=== PATIENT | male | born 1960 | race Caucasian/White ===

== ENCOUNTER 2017-04-07 13:57 | Emergency (ER) | payer BC ==
[2017-04-07 14:23] VITALS: BP 136/107; PULSE 57; RESP 16; TEMP 98.1; O2SAT 97
--- NOTE | 2017-04-07 15:11 | EDPHY ---
H & P Stated Complaint: Fell yesterday hiking,hit head, no LOC, poss fx/dislocation R index finger Time Seen by Provider: 04/07/17 14:57 HPI/ROS: CHIEF COMPLAINT: Right index finger pain HISTORY OF PRESENT ILLNESS: The patient is a 56-year-old man was hiking and bouldering yesterday when a [place] rocked and he fell off landing with an outstretched right hand. He had a formed right index finger at the PIP joint. He tried to straighten it himself but is still having pain and swelling. He also has a mild abrasion to his right hip. He did slightly he hit his head but denies any significant injury or headache. He is primarily concerned about his finger. He hike [place] to his camp and slept there overnight and then drove here today. REVIEW OF SYSTEMS: Constitutional: denies: chills, fever, recent illness, recent injury EENTM: denies: blurred vision, double vision, nose congestion Respiratory: denies: cough, shortness of breath Cardiac: denies: chest pain, irregular heart rate, lightheadedness, palpitations Gastrointestinal/Abdominal: denies: abdominal pain, diarrhea, nausea, vomiting, blood streaked stools Genitourinary: denies: dysuria, frequency, hematuria, pain Musculoskeletal: See HPI Skin: denies: lesions, rash, jaundice, bruising Neurological: denies: headache, numbness, paresthesia, tingling, dizziness, weakness Hematologic/Lymphatic: denies: blood clots, easy bleeding, easy bruising Immunologic/allergic: denies: HIV/AIDS, transplant EXAM: GENERAL: Well-appearing, well-nourished and in no acute distress. HEAD: Atraumatic, normocephalic. EYES: Pupils equal round and reactive to light, extraocular movements intact, sclera anicteric, conjunctiva are normal. ENT: TMs normal, nares patent, oropharynx clear without exudates. Moist mucous membranes. NECK: No midline tenderness, Normal range of motion, supple without lymphadenopathy or JVD. LUNGS: Breath sounds clear to auscultation bilaterally and equal. No wheezes rales or rhonchi. HEART: Regular rate and rhythm without murmurs, rubs or gallops. ABDOMEN: Soft, nontender, normoactive bowel sounds. No guarding, no rebound. No masses appreciated. BACK: No CVA tenderness, no spinal tenderness, step-offs or deformities EXTREMITIES: Right index finger with significant swelling at the PIP joint and slight deformity. No hand or wrist pain. NEUROLOGICAL: Cranial nerves II through XII grossly intact. Normal speech, normal gait. 5/5 strength, normal movement in all extremities, normal sensation PSYCH: Normal mood, normal affect. SKIN: Minor abrasion to right hip. Ambulates without difficulty Source: Patient Exam Limitations: No limitations - Personal History Current Tetanus Diphtheria and Acellular Pertussis (TDAP): Yes - Medical/Surgical History Hx Asthma: No Hx Chronic Respiratory Disease: No Hx Diabetes: No Hx Cardiac Disease: No Hx Renal Disease: No Hx Cirrhosis: No Hx Alcoholism: No Other PMH: HTN - Family History Significant Family History: No pertinent family hx - Social History Smoking Status: Never smoked Alcohol Use: Sober Drug Use: None Constitutional: Initial Vital Signs Temperature (C) 36.7 C 04/07/17 14:00 Heart Rate 57 L 04/07/17 14:00 Respiratory Rate 16 04/07/17 14:00 Blood Pressure 136/107 H 04/07/17 14:00 O2 Sat (%) 97 04/07/17 14:00 O2 Delivery Mode Room Air Allergies/Adverse Reactions: No Known Allergies Allergy (Unverified 04/07/17 14:23) Home Medications: Medication Instructions Recorded Aspirin [Aspirin 81mg (*)] 81 mg PO DAILY 04/07/17 Lisinopril [Zestril 5 mg (*)] 5 mg PO 04/07/17 Rosuvastatin Calcium [Crestor 20mg 20 mg PO DAILY 04/07/17 (*)] Medical Decision Making - Diagnostics Imaging Results: Imaging Impressions Finger X-Ray 04/07/17 15:08 Impression: Dorsal dislocation at the proximal interphalangeal joint with no visible fracture. Finger X-Ray 04/07/17 15:46 Impression: Anatomic alignment following reduction. Imaging: I viewed and interpreted images myself Procedures: Dislocation reduction: Patient's finger was anesthetized with 0.5% bupivacaine digital block. After reviewing the x-ray images the patient's PIP joint was then reduced with traction counter traction. Repeat x-rays performed. Patient maintained movement and good capillary refill afterwards. Procedure: Splint placement. A finger splint was applied. After application of the splint I returned and re- examined the patient. The splint was adequately immobilizing the joint and distal to the splint the patient's circulation and sensation was intact. ED Course/Re-evaluation: Patient tolerated the procedure well. His finger was splinted in place. We discussed follow-up as well as indications for returning. He is neurovascular intact currently. Differential Diagnosis: Partial list of the Differential diagnosis considered include but were not limited to; fracture, dislocation and although unlikely based on the history and physical exam, I also considered infection, open fracture. I discussed these differential diagnoses and the plan with the patient as well as the usual and expected course. The patient understands that the diagnosis is provisional and that in medicine we are not always correct and that further workup is often warranted. Usual and customary warnings were given. All of the patient's questions were answered. The patient was instructed to return to the emergency department should the symptoms at all worsen or return, otherwise to followup with the physician as we discussed. Departure - Departure Disposition: Home, Routine, Self-Care Clinical Impression: Dislocation, finger closed Qualifiers: Encounter type: initial encounter Qualified Code(s): S63.259A - Unspecified dislocation of unspecified finger, initial encounter Condition: Fair Instructions: Finger Dislocation (ED) Referrals: NOAH REY [Other] - As per Instructions Sarthak Jones MD [Medical Doctor] - As per Instructions
== END 2017-04-07 16:35 | disposition home or self-care (01) ==
PROC: 0RSWXZZ Reposition Right Finger Phalangeal Joint, External Approach (ICD-10-PCS; principal; 2017-04-07)
DX: S63.280A Dislocation of proximal interphalangeal joint of right index finger, initial encounter (principal); I10 Essential (primary) hypertension; Z79.82 Long term (current) use of aspirin; W18.39XA Other fall on same level, initial encounter; Y99.8 Other external cause status; Y93.01 Activity, walking, marching and hiking
CPT/HCPCS: L3925